=== PATIENT | female | born 1955 | race Caucasian/White ===

== ENCOUNTER 2017-07-18 05:08 | Emergency (ER) | payer OTHER ==
[~2017-07-18] VITALS: Ht 154.9 cm; Wt 77.2 kg
[~2017-07-18 05:08] MED LIST: AZIT250T94 PO; BENA20TA48 PO; CYCL-319 PO; D-ME118S6 PO; GLIM2TAB PO; IBUP-1542 PO; METF1000 PO; METH500T PO; NAPR-688 PO; PRED20TA PO; ZOC10 PO
[2017-07-18 05:16] VITALS: Ht 154.9 cm; Wt 77.2 kg
[2017-07-18] MEDS ORDERED: ACETAMINOPHEN 325 MG TAB PO ONE (07:30)
[2017-07-18 10:18] LABS: ADD UMIC YES; UR ASCORBIC ACID 40 mg/dL (NEGATIVE); UR BILIRUBIN (Dip) NEGATIVE (NEGATIVE); UR BLOOD (Dip) NEGATIVE (NEGATIVE); UR CLARITY SLIGHTLY CLOUDY (CLEAR); UR COLOR YELLOW (YELLOW); UR GLUCOSE (Dip) 3+ mg/dL (NEGATIVE); UR KETONES (Dip) TRACE mg/dL (NEGATIVE); UR LEUKOCYTE ESTERASE (Dip) 2+ Leu/ul (NEGATIVE); UR NITRITE (Dip) NEGATIVE (NEGATIVE); UR RBC 8 /HPF (0-5); UR SPECIFIC GRAVITY (Dip) 1.027 (1.003-1.030); UR SQUAMOUS EPITHELIAL CELL FEW /HPF (FEW); UR TOTAL PROTEIN (Dip) NEGATIVE (NEGATIVE); UR UROBILINOGEN (Dip) NEGATIVE (NEGATIVE)
[2017-07-18] MEDS ORDERED: NITR-58 PO (10:29)
[2017-07-18] MEDS ORDERED: PHEN-537 PO (10:29)
--- NOTE | 2017-07-18 10:33 | ERA ---
ER Documentation Chief Complaint Date/Time DATE: 07/18/17 TIME: 10:30 Chief Complaint PAINFUL URINATION AND BACK PAIN SINCE THIS MORNING.-N/V HPI 66-year-old female with a chief complaint of dysuria 1 day. Patient has not had symptoms like this in the past. Has not taken any medication for the symptoms. Denies fever, chills, dysuria, hematuria, back pain, abdominal pain, pelvic pain, discharge, foul odor, nausea, vomiting, diarrhea, constipation, headache or cough. Patient has no other symptoms and describes no other associated manifestations. Nursing notes have been reviewed and are consistent with history given. ROS All systems reviewed and are negative except as per history of present illness. Medications Home Meds Active Scripts Phenazopyridine Hcl* (Pyridium*) 100 Mg Tab, 100 MG PO TID for 3 Days, TAB Prov:SHAY RIVAS PA-C 07/18/17 Nitrofurantoin Monohyd Macrocr* (Macrobid*) 100 Mg Capsr, 100 MG PO HS for 7 Days, CAP Prov:SHAY RIVAS PA-C 07/18/17 Methocarbamol* (Robaxin*) 500 Mg Tab, 500 MG PO Q8, #14 TAB Prov:CHIKI JIMENES DO 12/26/15 Naproxen* (Naproxen*) 500 Mg Tablet, 500 MG PO BID, #20 TAB Prov:CHIKI JIMENES DO 16 Dextromethorphan Hb-Promethazine Hcl (Promethazine DM Syrup) 180 Ml Syrup, 5 ML PO Q6 Y for COUGH for 7 Days, ML Prov:MIRACLE JANG 10/06/15 Cyclobenzaprine Hcl* (Cyclobenzaprine Hcl*) 10 Mg Tablet, 10 MG PO QHS, #15 TAB Prov:MIRACLE JANG 10/06/15 Ibuprofen* (Motrin*) 600 Mg Tab, 600 MG PO Q6, #30 TAB Prov:MIRACLE JANG 10/06/15 Prednisone* (Prednisone*) 20 Mg Tab, 40 MG PO DAILY for 4 Days, TAB Prov:MIRACLE JANG 10/06/15 Azithromycin* (Zithromax*) 250 Mg Tablet, 250 MG PO .SHAY DIRECTED, #6 TAB TAKE 500 MG (2 TABS) THE FIRST DAY THEN 250 MG (1 TAB) DAYS 2-5 Prov:PEREZGALINA MARION PA-C 09/26/15 Reported Medications Simvastatin (Simvastatin) 10 Mg Tablet, 10 MG PO HS 01/06/13 Glimepiride* (Glimepiride*) 2 Mg Tablet, 2 MG PO DAILY 01/06/13 Benazepril Hcl* (Benazepril Hcl*) 20 Mg Tablet, 20 MG PO DAILY 01/06/13 Metformin Hcl* (Metformin Hcl*) 1,000 Mg Tablet, 1000 MG PO BID 01/06/13 Allergies Allergies: Coded Allergies: No Known Drug Allergy (Verified Allergy, Mild, 10/05/15) PMhx/Soc History of Surgery: Yes (c/section x 3) Anesthesia Reaction: No Hx Neurological Disorder: No Hx Respiratory Disorders: No Hx Cardiac Disorders: Yes (htn, dm) Hx Psychiatric Problems: No Hx Miscellaneous Medical Probl: Yes (iddm) Hx Alcohol Use: No Hx Substance Use: No Hx Tobacco Use: No Smoking Status: Never smoker Physical Exam Vitals Vital Signs Date Time Temp Pulse Resp B/P Pulse Ox O2 Delivery O2 Flow Rate FiO2 07/18/17 05:16 96.0 78 18 170/80 100 Physical Exam Const: Well-appearing 62 year old female in no acute distress. Head: Atraumatic Eyes: Normal Conjunctiva ENT: Normal External Ears, Nose and Mouth. Neck: Full range of motion..~ No meningismus. Resp: Clear to auscultation bilaterally Cardio: Regular rate and rhythm, no murmurs Abd: Mild suprapubic tenderness. Soft, non tender, non distended. Normal bowel sounds Skin: No petechiae or rashes Back: No midline or flank tenderness Ext: No cyanosis, or edema Neur: Awake and alert Psych: Normal Mood and Affect Results 24 hrs Laboratory Tests Test 07/18/17 09:00 Urine Color YELLOW Urine Clarity SLIGHTLY CLOUDY Urine pH 5.0 Urine Specific [place] 1.027 Urine Ketones TRACEmg/dL Urine Nitrite NEGATIVEmg/dL Urine Bilirubin NEGATIVEmg/dL Urine Urobilinogen NEGATIVEmg/dL Urine Leukocyte Esterase 2+Riccardo/ul Urine Microscopic RBC 8/HPF Urine Microscopic WBC 3/HPF Urine Squamous Epithelial Cells FEW/HPF Urine Hemoglobin NEGATIVEmg/dL Urine Glucose 3+mg/dL Urine Total Protein NEGATIVEmg/dl Current Medications Medications (Trade) Dose Ordered Sig/Mahsa Route PRN Reason Start Time Stop Time Status Last Admin Dose Admin Acetaminophen (Tylenol Tab) 650 mg ONCE ONCE PO 07/18/17 07:30 07/18/17 07:31 DC 07/18/17 07:45 Procedures/MDM 8-year-old female with a chief complaint of dysuria as described in history and physical examination. Physical examination was remarkable for mild suprapubic tenderness. Urinalysis was obtained, and given the following results: Leukocyte esterase 3+. Urinalysis results are most consistent with urinary tract infection/cystitis with hematuria. Patient will be given Pyridium for discomfort along with Macrobid 7 days for infection. I will suspicion for pyelonephritis, acute abdomen, torsion, obstruction, or serious bacterial infection at this time. Patient was discharged with discharge instructions return precautions. Appropriate at discharge at this time. Departure Diagnosis: Primary Impression: Cystitis Condition: Stable Patient Instructions: Cystitis Additional Instructions: Piero un seguimiento con rodriguez PCP dentro de los prximos 1-3 moss para sacha evaluaci n ms completa y sacha posible derivacin a un especialista. Devuelva el departamento de emergencia inmediatamente si los sntomas empeoran o cambian. Si tiene alguna pregunta con respecto a los medicamentos, consulte con rodriguez farmac utico o con nosotros antes de salir. Si se producen reacciones adversas mientras dary pedrito medicamentos, suspenda el tratamiento y regrese inmediatamente al servicio de urgencias. Crouch pedrito medicamentos segn las indicaciones y complete el curso completo del tratamiento. SHAY RIVAS PA-C Jul 18, 2017 10:33
== END 2017-07-18 12:20 | disposition home or self-care (01) ==
LOC: FTE 05:08
DX: N30.91 Cystitis, unspecified with hematuria (principal); E11.9 Type 2 diabetes mellitus without complications; I10 Essential (primary) hypertension; Z79.84 Long term (current) use of oral hypoglycemic drugs
CPT/HCPCS: 81001; Z7502; Z7610; 99283

== ENCOUNTER 2017-12-23 10:12 | Emergency (ER) | END 2017-12-23 10:50 | disposition home or self-care (01) ==

== ENCOUNTER → 2018-04-26 | Emergency (ER) | END | disposition home or self-care (01) ==

== ENCOUNTER 2018-12-14 19:35 | Emergency (ER) | payer OTHER ==
[~2018-12-14] VITALS: Ht 165.1 cm; Wt 82.3 kg
[~2018-12-14 19:35] MED LIST changes: +AZIT250T PO; -AZIT250T94 PO; +BENA20TA4 PO; -BENA20TA48 PO; -CYCL-319 PO; +CYCL10TA7 PO; +HC30CR25 TOP; +HYDR-842 PO; +INSU100C SQ; +MED4DP PO; -METF1000 PO; +METF100010 PO; +NITR-58 PO; +PHEN-537 PO
[2018-12-14 19:50] VITALS: Ht 165.1 cm; Wt 82.3 kg
--- NOTE | 2018-12-15 02:11 | ERD ---
ER Documentation Chief Complaint Chief Complaint pain right leg/foot x 1 month, denies trauma HPI This is a 63-year-old female presents emergency department with complaints of right foot pain for about a month. Patient stated that the pain is worse upon waking up in the morning and on her first step. LMP: Denies headache, head injury, loss of consciousness, dizziness, neck pain, neck stiffness, throat pain, difficulty swallowing, difficulty breathing lying flat, shoulder pain, chest pain, back pain, abdominal pain, nausea, vomiting, constipation, diarrhea, urinary symptoms, or possibility being , loss of bowel and bladder control, trauma, injury, falls, difficulty walking due to pain, numbness or tingling sensation, calf pain, recent travel, recent major surgery in the last 3 weeks, calf pain, recent long travel, recent exposure to any illness, recent antibiotic use in the last 3 months, fever, chills, seizures. Past medical history: Surgical history: Social: Denies smoking, use of alcoholic beverages, use of illegal drugs. ROS All systems reviewed and are negative except as per history of present illness. Medications Home Meds Active Scripts Omeprazole* (Omeprazole*) 40 Mg Capsule.dr, 40 MG PO DAILY, #30 CAP Prov:ADALBERTO SALINAS F 12/15/18 Ibuprofen* (Motrin*) 800 Mg Tab, 800 MG PO Q8 PRN for PAIN AND OR ELEVATED TEMP, #30 TAB Prov:ADALBERTO SALINAS F 12/15/18 Hydrocortisone* Topical (Hydrocortisone* Topical) 2.5%-28.3 Gm Cream..g., 1 APPLIC TOP BID for 7 Days, #1 TUB Prov:SHELL,DEEDEE 04/26/18 Methylprednisolone* (Medrol* DOSE PACK) 4 Mg/Dose-Pack Tab.ds.pk, 4 MG PO . DIRECTED for 7 Days, PACKET Prov:SHELL,DEEDEE 04/26/18 Hydroxyzine Hcl* (Atarax*) 25 Mg Tab, 25 MG PO Q6H PRN for ITCHING for 3 Days, #20 TAB Prov:SHELL,DEEDEE 04/26/18 Insulin Lispro (Humalog) 100 Unit/1 Ml Cartridge, 5 UNIT SQ BEFORE MEALS, #1 EA Inject 5 untis under the skin 2 times a day before meals. Prov:TAY DIAZ PA-C 12/23/17 Phenazopyridine Hcl* (Pyridium*) 100 Mg Tab, 100 MG PO TID for 3 Days, TAB Prov:SHAY RIVAS PA-C 07/18/17 Nitrofurantoin Monohyd Macrocr* (Macrobid*) 100 Mg Capsr, 100 MG PO HS for 7 Days, CAP Prov:SHAY RIVAS PA-C 07/18/17 Methocarbamol* (Robaxin*) 500 Mg Tab, 500 MG PO Q8, #14 TAB Prov:CHIKI JIMENES 12/26/15 Naproxen* (Naproxen*) 500 Mg Tablet, 500 MG PO BID, #20 TAB Prov:CHIKI JIMENES 12/26/15 Dextromethorphan Hb-Promethazine Hcl (Promethazine DM Syrup) 180 Ml Syrup, 5 ML PO Q6 PRN for COUGH for 7 Days, ML Prov:MIRACLE JANG 10/06/15 Cyclobenzaprine Hcl* (Cyclobenzaprine Hcl*) 10 Mg Tablet, 10 MG PO QHS, #15 TAB Prov:MIRACLE JANG 10/06/15 Ibuprofen* (Motrin*) 600 Mg Tab, 600 MG PO Q6, #30 TAB Prov:MIRACLE JANG 10/06/15 Prednisone* (Prednisone*) 20 Mg Tab, 40 MG PO DAILY for 4 Days, TAB Prov:MIRACLE JANG 10/06/15 Azithromycin* (Zithromax*) 250 Mg Tablet, 250 MG PO .SHAY DIRECTED, #6 TAB TAKE 500 MG (2 TABS) THE FIRST DAY THEN 250 MG (1 TAB) DAYS 2-5 Prov:GALINA PEREZ PA-C 09/26/15 Reported Medications Simvastatin (Simvastatin) 10 Mg Tablet, 10 MG PO HS 01/06/13 Glimepiride* (Glimepiride*) 2 Mg Tablet, 2 MG PO DAILY 01/06/13 Benazepril Hcl* (Benazepril Hcl*) 20 Mg Tablet, 20 MG PO DAILY 01/06/13 Metformin Hcl* (Metformin Hcl*) 1,000 Mg Tablet, 1000 MG PO BID 01/06/13 Allergies Allergies: Coded Allergies: No Known Drug Allergy (Verified Allergy, Mild, 04/26/18) PMhx/Soc History of Surgery: Yes (c/section x 3) Anesthesia Reaction: No Hx Neurological Disorder: No Hx Respiratory Disorders: No Hx Cardiac Disorders: Yes (htn, dm) Hx Psychiatric Problems: No Hx Miscellaneous Medical Probl: Yes (iddm) Hx Alcohol Use: No Hx Substance Use: No Hx Tobacco Use: No Smoking Status: Never smoker Physical Exam Vitals Vital Signs Date Temp Pulse Resp B/P (MAP) Pulse Ox O2 O2 Flow FiO2 Time Delivery Rate 12/15/18 82 20 185/76 97 Room Air 03:12 (112) 12/14/18 98.7 78 18 138/69 98 19:50 (92) Physical Exam Const: No acute distress Head: Atraumatic Eyes: Normal Conjunctiva ENT: Normal External Ears, Nose and Mouth. Neck: Full range of motion. No meningismus. Resp: Clear to auscultation bilaterally Cardio: Regular rate and rhythm, no murmurs Abd: Soft, non tender, non distended. Normal bowel sounds Skin: No petechiae or rashes Back: No midline or flank tenderness Ext: No cyanosis, or edema. Right foot: No obvious deformity. Right ankle no obvious deformity and is good and full range of motion. Right pedal pulses good. There is tenderness to the right plantar area. This is consistent with plantar fasciitis. Neur: Awake and alert. No neurological deficits. Psych: Normal Mood and Affect Results 24 hrs Current Medications Medications Dose Sig/Mahsa Start Time Status Last (Trade) Ordered Route PRN Stop Time Admin Dose Reason Admin Ketorolac 30 mg ONCE STAT 12/15/18 DC 12/15/18 Tromethamine IM 02:13 02:49 (Toradol) 12/15/18 02:15 Famotidine 40 mg ONCE ONCE 12/15/18 DC 12/15/18 (Pepcid) PO 02:30 02:49 12/15/18 02:31 1 tab ONCE ONCE 12/15/18 DC 12/15/18 Acetaminophen PO 02:30 02:48 / 12/15/18 02:31 Hydrocodone Bitart ([place] (5/325)) Procedures/MDM I offered diagnostic tests the patient strongly refused. Stated that she would rather be prescribed with medication because she does not want to wait much long er. Diagnostic tests:Clinical exam. Treatment: Toradol IM. Omeprazole p.o. [place] p.o. Offered crutches and Luis Felipe wrap but patient strongly refused. Re-evaluation: Denies headache, dizziness, neck pain, chest pain. No neurovascular deficit. No neurological deficits. Ambulatory with steady gait. Differential diagnosis I have low suspicion for DVT, displaced fracture, Lisfranc fracture, compartment syndrome. Final diagnosis: Plantar fasciitis. Prescription: Motrin. Omeprazole. Follow-up with PCP in the next 24-48 hours. PCP to refer patient to snath handle assembler in the next 24-48 hours. Come back here in the emergency department for any new symptoms or any worsening symptoms. All questions and concerns were answered. Patient and family members verbalized understanding and agreed with plan of care. Hemodynamically stable on discharge. Departure Diagnosis: Primary Impression: Plantar fasciitis Condition: Stable Additional Instructions: Follow-up with PCP in the next 24-48 hours. PCP to refer patient to snath handle assembler in the next 24-48 hours. Come back here in the emergency department for any new symptoms or any worsening symptoms. ADALBERTO SALINAS Dec 15, 2018 02:11
[2018-12-15] MEDS ORDERED: KETOROLAC 30 MG INJ IM STA (02:13)
[2018-12-15] MEDS ORDERED: IBUP800T48 PO (02:17)
[2018-12-15] MEDS ORDERED: OMEP40CA6 PO (02:17)
[2018-12-15] MEDS ORDERED: FAMOTIDINE 20 MG TAB PO ONE (02:30)
[2018-12-15] MEDS ORDERED: HYDROCODONE/APAP (5/325) TAB PO ONE (02:30)
[2018-12-15 03:12] VITALS: BP 185/76; PULSE 82; RESP 20
== END 2018-12-15 03:17 | disposition home or self-care (01) ==
LOC: FTE 19:35
DX: M72.2 Plantar fascial fibromatosis (principal); I10 Essential (primary) hypertension; E11.9 Type 2 diabetes mellitus without complications; Z79.4 Long term (current) use of insulin
CPT/HCPCS: 96372; J1885; Z7502; Z7610